=== PATIENT | male | born 1980 | race Caucasian/White ===

== ENCOUNTER 2021-11-22 16:09 | Emergency (ER) | payer BC, SELFPAY ==
[2021-11-22 16:45] VITALS: BP 130/89; PULSE 85; PULSE 97; RESP 16; TEMP 35.7; O2SAT 98; BMI 28.5
--- NOTE | 2021-11-22 17:51 | ED_ITS ---
HPI - General Adult General Time Seen by Provider: 17:51 Date Seen: 11/22/21 Chief complaint: Extremity Pain/Injury, Upper Stated complaint: Bump on left hand Time Seen by Provider: 11/22/21 17:38 Source: patient History of Present Illness HPI narrative: Jordan is a 41-year-old male with no past medical history presents emerged department with a right hand injury. 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 Denies any numbness or tingling. Has not had anything like this before. Patient was worried about his previous surgery and that the plates and screws were ok. Related Data Home Medications Medication Instructions Recorded Confirmed No Known Home Medications 11/25/21 11/25/21 Allergies Allergy/AdvReac Type Severity Reaction Status Date / Time chromium Allergy Unknown Rash Verified 11/25/21 08:35 Review of Systems Status of ROS: Reports: 10 or more systems reviewed and unremarkable except as noted in History and below PFSH PFS Social History Smoking Status: Current every day smoker What tobacco products do you use: cigarettes Do you use any of these nicotine containing products: None Second hand tobacco smoke exposure: No How often do you have a drink containing alcohol: 2-4 times a month How many standard drinks containing alcohol do you have on a typical day: 3 or 4 How often do you have six or more drinks on one occasion: Monthly AUDIT-C Alcohol total score: 5 Non-prescribed substance use: denies use service: No Exam Narrative: Exam Narrative: General: No obvious distress HEENT: Pupils equal round reactive to light, extraocular muscles intact : Neck: Supple full range of motion Lungs: Clear to auscultation bilaterally Heart: Normal sinus rhythm S1-S2 Abdomen: Soft nontender Muscle skeletal: Right hand: distal fourth metacarpal, 1-2 cm cyst present, FROM on extension and flexion of the MCP, minimal tenderness to palpation, no redness. CMS intact Neuro: Alert awake and oriented x3 Const: Vital Signs, click to edit/add: Vital Signs - 24 hr 11/22/21 16:45 Temperature 96.2 F L Pulse Rate [Pulse Oximeter] 85 Pulse Rate [Right Pulse Oximeter] 97 Respiratory Rate 16 Blood Pressure [Ri ght Upper Arm] 130/89 Pulse Oximetry 98 Oxygen Delivery Me thod Room Air Course Course Hospital Course: 5:45 PM: AIDET performed. vitals are normal. Work up will include XR right hand 3 views, patient does not want anything for pain. Likley Ganglionic cyst due to overuse. Vital Signs Vital signs: Initial Vital Signs Temperature 96.2 F L 11/22/21 16:45 Temperature Source Temporal Artery Scan 11/22/21 16:45 Pulse Rate 97 11/22/21 16:45 Pulse Rhythm 11/22/21 16:45 Respiratory Rate 16 11/22/21 16:45 Blood Pressure 130/89 11/22/21 16:45 Blood Pressure Mean 102 11/22/21 16:45 Pulse Oximetry 98 11/22/21 16:45 Oxygen Delivery Method 11/22/21 16:45 Vital Signs Temperature 96.2 F L 11/22/21 16:45 Pulse Rate 97 11/22/21 16:45 Respiratory Rate 16 11/22/21 16:45 Blood Pressure 130/89 11/22/21 16:45 Pulse Oximetry 98 11/22/21 16:45 Oxygen Delivery Method 11/22/21 16:45 Temperature 96.2 F L 11/22/21 16:45 Pulse Rate 97 11/22/21 16:45 Respiratory Rate 16 11/22/21 16:45 Blood Pressure 130/89 11/22/21 16:45 Pulse Oximetry 98 11/22/21 16:45 Oxygen Delivery Method 11/22/21 16:45 Discharge Plan Discharge Clinical Impression: Ganglion cyst of tendon sheath of right hand Patient Disposition: Home, Self-Care Condition: Improved Instructions: Ganglion Cysts (ED) Additional Instructions: Any worsening pain or increased redness to be seen again, otherwise follow-up with primary care provider in 7-10 days. Activity Level: Activity as Tolerated Prescriptions: No Action No Known Home Medications Follow Up/Referrals: Temo Jorgensen MD [Primary Care Provider] - Stand Alone Forms: [employer] Info Instructions
--- NOTE | 2021-11-22 17:56 | CRLHL7_ITS ---
For Patients: As a result of the Cures Act, medical imaging exams and procedure reports are released immediately into your electronic medical record. You may view this report before your referring provider. If you have questions, please contact your health care provider. INDICATION: Swelling of the 4th metacarpal persistent after surgery. COMPARISON: 04 October 2020 and 19 June 2021. IMPRESSION: Dorsal microplate and screw fixation of the 4th metacarpal with healed diaphysis fracture. Anatomic alignment. Small nonunited round well corticated fracture ossicle of the tip of the ulnar styloid. No radiopaque foreign body. No soft tissue gas. No significant soft tissue swelling appreciated. Dictated by Raman Perry MD @ 11/22/2021 6:45:35 PM (Electronically Signed)
== END 2021-11-22 19:02 | disposition home or self-care (01) ==
PROVIDERS: Emergency Provider Student in an Organized Health Care Education/Training Program; PCP Family Medicine
DX: M67.442 Ganglion, left hand (principal)
CPT/HCPCS: 73130; 99283; 99284

== ENCOUNTER 2021-11-25 08:31 | Emergency (ER) | payer BC, SELFPAY ==
[2021-11-25 08:35] VITALS: BP 148/98; PULSE 85; RESP 18; TEMP 36.9; O2SAT 99; BMI 27.9
--- NOTE | 2021-11-25 09:06 | CRLHL7_ITS ---
For Patients: As a result of the Cures Act, medical imaging exams and procedure reports are released immediately into your electronic medical record. You may view this report before your referring provider. If you have questions, please contact your health care provider. INDICATION: Trauma with pain TECHNIQUE: Two-view right hand COMPARISON: 11/22/2021 FINDINGS: Two views of the right hand re-identified dorsally positioned sideplate and screw fixation device transfixing a right 4th metacarpal proximal/mid shaft fracture. Alignment remains normal with no acute abnormality noted. A small well corticated ulnar styloid avulsion fracture is re-identified. IMPRESSION: 1. No acute fracture or acute abnormality noted. 2. Dorsally positioned sideplate and screw fixation device transfixes a proximal diaphyseal fracture of the right 4th metacarpal bone. Dictated by Saad House MD @ 11/25/2021 9:30:03 AM (Electronically Signed)
--- NOTE | 2021-11-25 09:45 | ED.GENADULT ---
HPI - General Adult General Chief complaint: Extremity Pain/Injury, Upper Stated complaint: Smashed RT hand Time Seen by Provider: 11/25/21 09:03 Source: patient Mode of arrival: ambulatory Limitations: no limitations History of Present Illness HPI narrative: 41-year-old male coming in today complaining of hand pain. He states that approximately 10 hours ago he transmission fell on his right hand. He has pain over the 4th metacarpal. He has some broken skin in the area. 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 Related Data Home Medications Medication Instructions Recorded Confirmed No Known Home Medications 11/25/21 11/25/21 Allergies Allergy/AdvReac Type Severity Reaction Status Date / Time chromium Allergy Unknown Rash Verified 11/25/21 08:35 Review of Systems Narrative: Denies other injury PFSH [facility] Social History Smoking Status: Current every day smoker What tobacco products do you use: cigarettes Do you use any of these nicotine containing products: None Second hand tobacco smoke exposure: No How often do you have a drink containing alcohol: 2-4 times a month How many standard drinks containing alcohol do you have on a typical day: 3 or 4 How often do you have six or more drinks on one occasion: Monthly AUDIT-C Alcohol total score: 5 Non-prescribed substance use: denies use service: No Exam Narrative: Exam Narrative: Well-nourished well-developed patient in no acute distress. Alert and oriented. Answers questions appropriately. Mood and affect are appropriate. HEENT: Normocephalic atraumatic. Pupils are equally round reactive to light. Extraocular muscles are intact. Conjunctivae are moist without any icterus noted. Extremities: right hand has some swelling over the dorsal surface. 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 He has tenderness over the 4th metacarpal. No tenderness of the fingers. He has full range of motion of the fingers without significant difficulty. He has approximately a 1 cm jagged laceration right between the 3rd and 4th knuckles. The laceration extends through the skin but does not penetrate into the subcutaneous tissue the skin edges are sitting approximated. He has another small puncture wound just medial to the 4th knuckle. The area is not red. There is no active bleeding. Full range of motion at the wrist. Normal radial pulse. Normal capillary refill of all fingers. Skin: Well perfused. Const: Vital Signs, click to edit/add: Vital Signs - 24 hr 11/25/21 08:35 Temperature 98.4 F Pulse Rate [Pulse Oximeter] 85 Respiratory Rate 18 Blood Pressure [Le ft Upper Arm] 148/98 H Pulse Oximetry 99 Oxygen Delivery Me thod Room Air Course Course Hospital Course: Hand x-ray does not show any acute abnormalities. His hand was cleaned and dressed appropriately we opted not to suture given the shallow nature of the laceration and the fact that it has been open now for 10 hours. Vital Signs Vital signs: Initial Vital Signs Temperature 98.4 F 11/25/21 08:35 Temperature Source Temporal Artery Scan 11/25/21 08:35 Pulse Rate 85 11/25/21 08:35 Pulse Rhythm 11/25/21 08:35 Respiratory Rate 18 11/25/21 08:35 Blood Pressure 148/98 H 11/25/21 08:35 Blood Pressure Mean 114 11/25/21 08:35 Blood Pressure Position Supine 11/25/21 08:35 Pulse Oximetry 99 11/25/21 08:35 Oxygen Delivery Method 11/25/21 08:35 Vital Signs Temperature 98.4 F 11/25/21 08:35 Pulse Rate 85 11/25/21 08:35 Respiratory Rate 18 11/25/21 08:35 Blood Pressure 148/98 H 11/25/21 08:35 Pulse Oximetry 99 11/25/21 08:35 Oxygen Delivery Method 11/25/21 08:35 Temperature 98.4 F 11/25/21 08:35 Pulse Rate 85 11/25/21 08:35 Respiratory Rate 18 11/25/21 08:35 Blood Pressure 148/98 H 11/25/21 08:35 Pulse Oximetry 99 11/25/21 08:35 Oxygen Delivery Method 11/25/21 08:35 Medical Decision Making MDM Narrative Medical decision making narrative: 41-year-old male with injury to the hand, small laceration and contusion. Tdap updated 2017. We discussed wound hygiene, signs and symptoms of infection, reasons to return to the ER. We discussed icing and elevating the hand for symptom control. We discussed onvu-pin-yohtfab pain medications. Patient was agreeable with everything we discussed had no other questions or concerns. Imaging Data Hand x-ray: Attestation: I have reviewed the pertinent imaging results. My impression: no acute fractures Radiologist's impression: TECHNIQUE: Two-view right hand COMPARISON: 11/22/2021 FINDINGS: Two views of the right hand re-identified dorsally positioned sideplate and screw fixation device transfixing a right 4th metacarpal proximal/mid shaft fracture. Alignment remains normal with no acute abnormality noted. A small well corticated ulnar styloid avulsion fracture is re-identified. IMPRESSION: 1. No acute fracture or acute abnormality noted. 2. Dorsally positioned sideplate and screw fixation device transfixes a proximal diaphyseal fracture of the right 4th metacarpal bone. Discharge Plan Discharge Clinical Impression: Contusion of hand, Laceration Patient Disposition: Home, Self-Care Condition: Stable Additional Instructions: keep hand clean and dry. Shower like he nor normally would however do not soak your hand the such as swimming, doing dishes or going in hot tubs. Keep cut covered, especially if you are working. Watch out for signs of infection which include redness that spreads around the hand, or draining pus from the laceration. If this occurs follow-up with your primary care provider right away. Elevate the hand as much as you can do today, above heart level. Okay to ice hand as needed as well. Do not ice for more than 20 minutes at a time and do not apply ice directly to skin. Prescriptions: No Action No Known Home Medications Follow Up/Referrals: Temo Jorgensen MD [Primary Care Provider] - Stand Alone Forms: [employer] Info Instructions
--- NOTE | 2021-11-25 10:10 | ED.NURSE ---
wounds dressed with bacitracin and a bandaid. wrapped with coban and then 2 inch joaquín.
== END 2021-11-25 10:18 | disposition home or self-care (01) ==
PROVIDERS: Emergency Provider Family Medicine; PCP Family Medicine
DX: S60.221A Contusion of right hand, initial encounter (principal); W23.0XXA Caught, crushed, jammed, or pinched between moving objects, initial encounter
CPT/HCPCS: 73130; 99283; 99284

== ENCOUNTER 2024-05-02 10:15 | Emergency (ER) | payer BC, SELFPAY ==
--- OUTSIDE RECORDS SUMMARY | 2024-05-02 10:16 | XMS_ITS | Clinical Summary ---
Author Organization [employer] [facility] Address [address] [place] [id number] Care Team Providers Care Automatic Mounter Name Role Phone Evy Blanchard DO Primary Care Provider [phone] Allergies Active Allergy Reactions Criticality Noted Date Comments Chromium And Derivatives Rash Medications omeprazole 20 mg tabletIndication s:Gastroesophage al reflux disease, unspecified whether esophagitis present Take 1 Tablet (20 mg) by mouth once daily. 90 Tablet 3 5 Active albuterol HFA (Ventolin HFA) 90 mcg/actuation inhalerIndicatio ns:Asthma, unspecified asthma severity, unspecified whether complicated, unspecified whether persistent Inhale 1 Puff by mouth every 4 hours if needed for Shortness Of Breath or Wheezing. 18 g 1 5 Active Active Problems Problem Noted Date Diagnosed Date HTN (hypertension) 03/22/2024 Tobacco use disorder 11/15/2009 Overview (03/22/2024): 1 PPD since young age GERD (gastroesophageal reflux disease) 0 Encounters Date Type Department Care Team Description 03/22/2024 4:30 PM MANAGER OF INFORMATION Office Visit [facility] [address] [place] [address] Evy Blanchard, DO Medication Management (omeprazole) 03/22/2024 Travel 03/05/[address] [facility] [address] [place] [address] Evy Blanchard DO Refill Request (Omeprazole) from Last 3 Months Immunizations Name Administration Dates Next Due DTP 07/27/1987,10/03/1986,05/17/1986 ,01/08/1985 Influenza Virus, Unspecified 12/16/2013 Influenza, IIV4 12/16/2013 MMR 07/03/1995,05/17/1986 Oral Polio Vaccine 07/27/1987,10/03/1986, 987 Td (Age >=7 Years) 07/01/1995 Tdap 10/02/2016,09/27/2009,08/15/2009 Family History Medical History Relation Name Comments Cancer-colon Neg. 1 Heart Disease Neg. 2 Diabetes Neg. 3 Cancer-prostate Other unknown Relation Name Status Comments Brother 1 Alive Brother 2 Alive Mother Alive Neg. 1 Neg. 2 Neg. 3 Other Social History Tobacco Use Types Packs/Day Years Used Date Smoking Tobacco: Every Day Cigarettes 1 15 Smokeless Tobacco: Never Tobacco Cessation:Ready to Q uit: Yes; Counseling Given: No Alcohol Use Standard Drinks/Week Comments Yes 24 (1 standard drink = 0.6 oz pu re alcohol) PHQ-2 Answer Date Recorded PHQ-2 TOTAL SCORE 1 11/20/2022 Social Connections Answer Date Recorded Do you often feel lonely or isolated from those around you? 0 03/22/2024 Financial Resource Strain Answer Date R ecorded Difficulty of Paying Living Expenses 3 03/22/2024 Difficulty of Paying Living Expenses Not on file 03/22/2024 Food Insecurity Answer Date Recorded Do you worry your food will run out before you are able to buy more? 1 03/22/2024 Transportation Needs Answer Date Record ed Does lack of transportation keep you from medica l appointments? 1 03/22/2024 Does lack of transportation keep you from work, meetings or getting things that you need? 1 03/22/2024 Housing Stability Answer Date Recorded What is your housing situation today? 1 03/22/2024 Utilities Answer Date Recorded Do you have trouble paying f or utilities (for example, heat, electricity, water, phone)? 1 03/22/2024 Sex and Gender Information Value Date Recorded Sex Assigned at Not on file Legal Sex Male 5:25 AM MANAGER OF INFORMATION Gender Identity Not on file Sexual Orientation Not on file Obstetrics History Last Filed Vital Signs Vital Sign Reading Time Taken Comments Blood Pressure 158/114 03/22/2024 4:50 PM MANAGER OF INFORMATION Pulse 83 03/22/2024 4:50 PM MANAGER OF INFORMATION Temperature 37.2 C (98.9 F) 11/27/2021 12:51 PM CDT Respiratory Rate 14 12/12/2018 10:53 PM CDT Oxygen Saturation 98% 03/22/2024 4:23 PM MANAGER OF INFORMATION Inhaled Oxygen Concentration - - Weight 104.8 kg (231 lb) 03/22/2024 4:23 PM MANAGER OF INFORMATION Height 183.6 cm (6' 0.28) 11/20/2022 10:45 AM C DT Body Mass Index 31.08 11/20/2022 10:45 AM CDT Plan of Treatment Upcoming Encounters Date Type Department Care Team (Late st Contact Info) Description 05/17/2024 4:30 PM CDT Office Visit [facility] [address] [place] [address] Evy Blanchard DO [address] [place] [address] Health Maintenance Due Date Last Done Comments Pneumococcal series for age 6-49 (1 of 2 - PCV) 2000 COVID-19 vaccine series ( season) 2023 Influenza for age 9-49 11/09/2023 12/16/2013, 2013 BMI (ht and wt on same day) for age 18+ 11/21/2023 11/20/2022, 09/25/2020, 08/25/2020 Depression screening for age 12+ 11/21/2023 11/21/19 23, 08/25/2020 Tetanus booster 10/02/2026 10/02/2016, 09/08, 08/15/2009, Additional history exists Lipids for age 35-44 11/21/2027 11/20/2022 Tdap Completed 10/02/2016, 09/08, 08/15/2009 HIV for age 15-65 Completed 11/20/2022 Hepatitis C screening for ag e 18-79 Completed 11/20/2022 Procedures Procedure Name Priority Date/Time Associated Diagnosis Comments ANTI HIV 1/2 Routine 11/20/2022 11:43 AM CDT Screening for HIV (human immunodeficiency virus) ANTI HCV Routine 11/20/2022 11:43 AM CDT Encounter for hepatitis C screening test for low risk patient LIPID PANEL W REFLEX MEASURED LDL Routine 11/20/2022 11:43 AM CDT Screening for hyperlipidemia from Last 3 Months or Most Recently Relevant to Health Maintenance Results * LIPID PANEL W REFLEX MEASURED LDL (11/20/2022 11:43 AM CDT) CHOLESTEROL,TOTAL 185 100 - 199 mg/dL 11/21/2022 8:24 AM CDT [facility] Comment: Cholesterol, Total Reference Ranges Desirable <200 mg/dL Borderline 200-239 mg/dL High >=240 mg/dL TRIGLYCERIDES 138 <150 mg/dL 11/21/2022 8:24 AM CDT [facility] HDL CHOLESTEROL 44 >40 mg/dL 8:24 AM CDT [facility] NON-HDL CHOLESTEROL 141 <145 mg/dl 11/21/2022 8:24 AM CDT [facility] CHOL/HDL RATIO 4.20 <4.50 11/21/2022 8:24 AM CDT [facility] LDL CHOLESTEROL 113 <=130 mg/dL 11/21/2022 8:24 AM CDT [facility] VLDL CHOLESTEROL 28 <=30 mg/dL 11/21/2022 8:24 AM CDT [facility] PROVIDER ORDERED STATUS RANDOM 11/21/2022 8:24 AM CDT [facility] Blood BLOOD SPECIMEN / Unknown Venipuncture / Unknown 11/20/2022 11:43 AM CDT 11/20/2022 11:43 AM CDT us Evy Blanchard DO CHEMISTRY Final Resu lt [facility] [address] [place] [address], * ANTI HCV (11/20/2022 11:43 AM CDT) HEPATITIS C ANTIBODY Non-Reacti ve Non-React daphne 11/21/2022 9:48 AM CDT [facility] Comment:Please note, per www .CDC.gov: If a patient is known to be at high risk of HCV infection, or is symptomatic, and the physician's suspicion of HCV infection is high, HCV RNA testing is often employed and is of diagnostic value, even after an initial negative anti-HCV test result. Blood BLOOD SPECIMEN / Unknown Venipuncture / Unknown 11/20/2022 11:43 AM CDT 11/20/2022 11:43 AM CDT Evy Blanchard DO SEND OUTS Final Resu lt [facility] [employer] [id number] [place] [id number] * ANTI HIV 1/2 (11/20/2022 11:43 AM CDT) HIV-1/HIV-2 SCREEN Non-Reacti ve Non-Reacti ve 11/21/2022 8:11 AM CDT [facility] [employer] [facility] Comment:HIV-1 p24 and HIV-1/ HIV-2 Ab Not Detected. Blood BLOOD SPECIMEN / Unknown Venipuncture / Unknown 11/20/2022 11:43 AM CDT 11/20/2022 11:43 AM CDT Evy Blanchard DO SEND OUTS Final Resu lt [facility] [address] [place] [address], from Last 3 Months or Most Recently Relevant to Health Maintenance Insurance [facility] [employer] [place] [employer] [place] Care Teams Automatic Mounter Relationship Specialty Start Date End Date Evy Blanchard [place] [address] PCP - General Family Practice 03/18/24
[2024-05-02 10:24] VITALS: BP 162/102; PULSE 105; RESP 18; TEMP 36.3; O2SAT 96; BMI 31.2
--- NOTE | 2024-05-02 10:36 | CRLHL7_ITS ---
For Patients: As a result of the Century Cures Act, medical imaging exams and procedure reports are released immediately into your electronic medical record. You may view this report before your referring provider. If you have questions, please contact your health care provider. INDICATION: Umbilical hernia periumbilical and left lower quadrant pain TECHNIQUE: CT abdomen and pelvis with 113 mL Isovue 370 contrast. COMPARISON: None. FINDINGS: Lower chest: Unremarkable. Liver: Normal in size and attenuation. No suspicious masses. Gallbladder and bile ducts: No stones or inflammation. No biliary dilatation. Pancreas: Unremarkable. No mass or inflammation. Spleen: Normal in size. No masses. Adrenal glands: Normal in size. No nodules. Kidneys: Normal in size. No suspicious masses, stones, or hydronephrosis. GI tract: Mild wall thickening of the sigmoid colon however this could be related to nondistention minimal colitis not completely excluded. Normal appendix. Vasculature: Abdominal aorta is normal in caliber. Lymph nodes: No lymphadenopathy. Peritoneum/Abdominal Wall: Small fat containing umbilical hernia there is mild fat stranding the hernia sac as well as the underlying mesenteric fat. Small fat containing right inguinal hernia. Pelvis: Unremarkable. No pelvic masses. Bones: Unremarkable for age. IMPRESSION: 1. Normal appendix. 2. Mild wall thickening sigmoid colon probably related to nondistention minimal colitis not completely excluded. 3. Small fat containing umbilical hernia fat stranding in the hernia sac as well as the underlying mesenteric fat. Please note that all CT scans at this facility use dose modulation, iterative reconstruction, and/or weight-based dosing when appropriate to reduce radiation dose to as low as reasonably achievable. Dictated by Cat Rivera MD @ 05/02/2024 11:06:56 AM (Electronically Signed)
[2024-05-02 10:50] LABS: Basophils Absolute Auto 0.07 K/uL (0.00-0.30); Basophils Percent Auto 0.7 % (0.0-3.0); Eosinophils Absolute Auto 0.25 K/uL (0.00-0.50); Eosinophils Percent Auto 2.4 % (0.0-7.0); Hematocrit 45.3 % (37.0-53.0); Hemoglobin* 15.8 gm/dL (13.5-17.5); Immature Granulocytes Abs Auto 0.02 K/uL (0.00-0.30); Immature Granulocytes Pct Auto 0.2 %; Lymphocytes Absolute Auto 3.02 K/uL (0.90-2.90); Lymphocytes Percent Auto 29.5 % (20-44); Mean Corpuscular HGB Conc 35 gm/dL (32-36); Mean Corpuscular Hemoglobin 31 pg (26-34); Mean Corpuscular Volume 90 fL (80-100); Monocytes Percent Auto 9.7 % (0.0-11.0); Neutrophils Absolute Auto 5.89 K/uL (1.7-7.0); Neutrophils Percent Auto 57.5 % (42.0-72.0); Platelet Count* 197 K/uL (140-440); RDW Coefficient of Variation % 13.1 % (11.5-15.5); Red Blood Count 5.04 m/uL (4.30-5.90); White Blood Count* 10.24 K/uL (4.50-11.00)
[2024-05-02 10:55] LABS: Slide Review Reflex No
[2024-05-02 11:03] LABS: Albumin* 4.6 g/dL (3.3-5.0); Chloride* 105 mmol/L (96-114); Sodium* 137 mmol/L (135-149)
[2024-05-02 11:04] LABS: Potassium* 4.5 mmol/L (3.6-5.1)
[2024-05-02 11:06] LABS: Alkaline Phosphatase* 62 U/L (40-150); Anion Gap 9 mEq/L (7-15); Aspartate Amino Transferase* 26 U/L (12-35); Bilirubin Total* 0.7 mg/dL (0.1-1.5); Blood Urea Nitrogen* 16 mg/dL (5-24); Carbon Dioxide* 23 mmol/L (20-32); Est. Creatinine Clearance* 105.62; Estimated Glomerular Filt Rate 96 ml/min; Glucose* 136 mg/dL (60-115); Total Protein* 7.3 g/dL (6.0-8.3)
--- OUTSIDE RECORDS SUMMARY | 2024-05-02 11:06 | XMS_ITS | Clinical Summary ---
Author Organization [employer] [facility] Address [address] [place] [id number] Care Team Providers Care Reconcilement Clerk Name Role Phone Evy Blanchard DO Primary Care Provider [phone] Allergies Active Allergy Reactions Criticality Noted Date [...] Department Care Team Description 03/22/2024 4:30 PM [employer] Office Visit [facility] [address] [place] [address] Evy Blanchard, DO Medication Management (omeprazole) 03/22/2024 Travel 03/05/2024 Refill [facility] [address] [place] [address] Evy Blanchard DO Refill Request (Omeprazole) from [...] on file Legal Sex Male 5:25 AM [employer]ST[employer] Gender Identity Not on file Sexual Orientation Not on file Obstetrics History Last Filed Vital Signs Vital Sign Reading Time Taken Comments Blood Pressure 158/114 03/22/2024 4:50 PM [employer] Pulse 83 03/22/2024 4:50 PM [employer] INST[employer]ER Temperature 37.2 C (98.9 F) 11/27/2021 12:51 PM CDT Respiratory Rate 14 12/12/2018 10:53 PM CDT Oxygen Saturation 98% 03/22/2024 4:23 PM [employer] Inhaled Oxygen Concentration - - Weight 104.8 kg (231 lb) 03/22/2024 4:23 PM [employer]ST[employer] Height 183.6 cm (6' 0.28) 11/20/2022 10:45 AM C DT Body Mass Index 31.08 11/20/2022 10:45 AM CDT Plan of Treatment Upcoming Encounters Date Type Department Care Team (Late st Contact Info) Description 05/17/2024 4:30 PM CDT Office Visit [facility] [address] [place] [address] Evy Blanchard DO [address] [place] [address] Health Maintenance Due Date Last Done Comments [...] - 199 mg/dL 11/21/2022 8:24 AM CDT [facility] Comment: Cholesterol, Total Reference Ranges Desirable <200 mg/dL Borderline 200-239 mg/dL High >=240 mg/dL TRIGLYCERIDES 138 <150 mg/dL 11/21/2022 8:24 AM CDT [facility] HDL CHOLESTEROL 44 >40 mg/dL 8:24 AM CDT [facility] NON-HDL CHOLESTEROL 141 <145 mg/dl 11/21/2022 8:24 AM CDT [facility] CHOL/HDL RATIO 4.20 <4.50 11/21/2022 8:24 AM CDT [facility] LDL CHOLESTEROL 113 <=130 mg/dL 11/21/2022 8:24 AM CDT [facility] VLDL CHOLESTEROL 28 <=30 mg/dL 11/21/2022 8:24 AM CDT [facility] PROVIDER ORDERED STATUS RANDOM 11/21/2022 8:24 AM CDT [facility] Blood BLOOD SPECIMEN / Unknown Venipuncture / Unknown 11/20/2022 11:43 AM CDT 11/20/2022 11:43 AM CDT us Evy Blanchard DO CHEMISTRY Final Resu lt [facility] [address] [place] [address], * ANTI HCV (11/20/2022 11:43 AM CDT) HEPATITIS C ANTIBODY Non-Reacti ve Non-React daphne 11/21/2022 9:48 AM CDT [facility] Comment:Please note, per www .CDC.gov: If [...] Blanchard DO SEND OUTS Final Resu lt [facility] SENDOUT [facility] [id number] [place] [id number] * ANTI HIV 1/2 (11/20/2022 11:43 AM CDT) HIV-1/HIV-2 SCREEN Non-Reacti ve Non-Reacti ve 11/21/2022 8:11 AM CDT [facility] Comment:HIV-1 p24 and HIV-1/ HIV-2 Ab Not Detected. Blood BLOOD SPECIMEN / Unknown Venipuncture / Unknown 11/20/2022 11:43 AM CDT 11/20/2022 11:43 AM CDT Evy Blanchard DO SEND OUTS Final Resu lt [facility] [address] [place] [address], from Last 3 Months or Most Recently Relevant to Health Maintenance Insurance [facility] [employer] [place] [place] [employer] [place] [place] Care Teams Reconcilement Clerk Relationship Specialty Start Date End Date Evy Bl[place] [address] PCP - General Family Practice 03/18/24
[2024-05-02 11:07] LABS: Alanine Aminotransferase* 30 U/L (4-50); Calcium* 9.1 mg/dL (8.4-10.6)
--- NOTE | 2024-05-02 11:20 | ED.ABDPAIN ---
HPI - Abdominal Pain General Date Seen: 05/02/24 Chief Complaint: Abdominal Pain Stated Complaint: Stomach pain Time Seen by Provider: 05/02/24 10:31 Source: patient Mode of arrival: ambulatory Limitations: no limitations History of Present Illness HPI narrative: Patient is a 43-year-old male presenting to the emergency department for abdominal pain. The abdominal pain started yesterday. States it seems to start around some umbilical region and radiates to his left lower quadrant. 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 He states it does not appear any different than normal for him. Does state muscles pain at this time seems to be in his left lower quadrant. Denies having pain like this before. Pain started after he coughed yesterday. Has been wearing a abdominal brace around his abdomen that has helped quite a bit. Denies any nausea or vomiting. No other injuries noted. Chest pain, shortness of breath, diarrhea, constipation, weakness, numbness, headache. States he has been eating and drinking normally. Related Data Home Medications ?Medication ?Instructions ?Recorded ?Confirmed albuterol sulfate 90 mcg/actuation 1 puff inhalation Q4H PRN wheezing 05/02/24 05/02/24 aerosol inhaler (Ventolin HFA) omeprazole 20 mg capsule,delayed 20 mg PO DAILY 05/02/24 05/02/24 release Allergies Allergy/AdvReac Type Severity Reaction Status Date / Time chromium Allergy Unknown Rash Verified 05/02/24 10:47 Review of Systems Status of ROS Reports: 10 or more systems reviewed and unremarkable except as noted in History and below PFS PFS Social History Smoking Status: Current every day smoker What tobacco products do you use: cigarettes Do you use any of these nicotine containing products: None Second hand tobacco smoke exposure: No How often do you have a drink containing alcohol: 2-4 times a month How many standard drinks containing alcohol do you have on a typical day: 3 or 4 How often do you have six or more drinks on one occasion: Monthly AUDIT-C Alcohol total score: 5 Non-prescribed substance use: denies use service: No Exam Narrative: Exam Narrative: Const: Well-nourished, Well-developed, in mild distress Eyes: PERRL, no conjunctival injection, and symmetrical lids HENT: Atraumatic external nose and ears. Moist mucous membranes. Neck: Symmetric, trachea midline, No thyromegaly. CVS: RRR, No murmurs or gallops. Peripheral pulses 2+ and equal in all extremities RESP: Unlabored respiratory effort. Clear to auscultation bilaterally. GI: Mild left lower quadrant tenderness. Non reducible umbilical hernia that is soft and no overlying skin change MSK:Extremities w/o deformity, Normal Active ROM Skin: Warm, Dry. No rashes or lesions. Neuro: Normal Muscle tone, No focal neurological deficits. Psych: Awake, Alert, & Oriented x3. Appropriate mood and affect. Const: Vital Signs, click to edit/add: Vital Signs - 24 hr 05/02/24 10:24 Temperature 97.4 F L Pulse Rate [Pulse Oximeter] 105 H Respiratory Rate 18 Blood Pressure [Ri ght Upper Arm] 162/102 H Pulse Oximetry 96 Oxygen Delivery Me thod Room Air Course Vital Signs Vital signs: Initial Vital Signs Temperature 97.4 F L 05/02/24 10:24 Temperature Source Temporal Artery Scan 05/02/24 10:24 Pulse Rate 105 H 05/02/24 10:24 Respiratory Rate 18 05/02/24 10:24 Blood Pressure 162/102 H 05/02/24 10:24 Blood Pressure Mean 122 H 05/02/24 10:24 Pulse Oximetry 96 05/02/24 10:24 Oxygen Delivery Method Room Air 05/02/24 10:24 Vital Signs Temperature 97.4 F L 05/02/24 10:24 Pulse Rate 105 H 05/02/24 10:24 Respiratory Rate 18 05/02/24 10:24 Blood Pressure 162/102 H 05/02/24 10:24 Pulse Oximetry 96 05/02/24 10:24 Oxygen Delivery Method Room Air 05/02/24 10:24 Temperature 97.4 F L 05/02/24 10:24 Pulse Rate 105 H 05/02/24 10:24 Respiratory Rate 18 05/02/24 10:24 Blood Pressure 162/102 H 05/02/24 10:24 Pulse Oximetry 96 05/02/24 10:24 Oxygen Delivery Method Room Air 05/02/24 10:24 MDM - Abdominal Pain MDM Narrative Medical decision making narrative: Patient is a 43-year-old male presenting to the emergency department for abdominal pain. Seems like the pain is mostly in his left lower quadrant/supra pubic region. He does have tenderness when you press on his umbilical hernia be states that is chronic and has been that way for several years. He has seen a general surgeon for it last 5 years ago and has not had any changes through the hernia since that time. At that time he states he also had tenderness to palpation of the hernia only when you press on it and he was never able to reduce it at that time either. He states this hernia seems no different than normal for him. Will do a CT scan though for better evaluation. Also do CBC, CMP, urinalysis as he does have some suprapubic pain. CT scan reviewed by myself and the radiologist shows some mild fat stranding around his umbilical hernia and some possible colitis of the sigmoid colon. This fat stranding is likely chronic for him based on his description. Did not believe he needs a general surgery consult at this time as again states his hernias no different than normal for him. Considering this pain started after a cough and sneeze I wound. Is if this caused a slight muscle strain. He states the pain seems much better today compared to yesterday. He states he does not have any sensation of needing to urinate at this time and with no signs of cystitis on CT and otherwise no urinary symptoms I do not believe urinalysis is necessary. Lab Data Labs: Lab Results 05/02/24 Range/Units 10:45 WBC 10.24 (4.50-11.00) K/uL RBC 5.04 (4.30-5.90) m/uL Hgb 15.8 (13.5-17.5) gm/dL Hct 45.3 (37.0-53.0) % MCV 90 (80-100) fL MCH 31 (26-34) pg MCHC 35 (32-36) gm/dL RDW Coeff of Kandace 13.1 (11.5-15.5) % Plt Count 197 (140-440) K/uL Neut % (Auto) 57.5 (42.0-72.0) % Lymph % (Auto) 29.5 (20-44) % Curry % (Auto) 9.7 (0.0-11.0) % Eos % (Auto) 2.4 (0.0-7.0) % Baso % (Auto) 0.7 (0.0-3.0) % Neut # (Auto) 5.89 (1.7-7.0) K/uL Lymph # (Auto) 3.02 H (0.90-2.90) K/uL Curry # (Auto) 1.00 H (0.00-0.90) K/UL Eos # (Auto) 0.25 (0.00-0.50) K/uL Baso # (Auto) 0.07 (0.00-0.30) K/uL Abs Immat Gran (auto) 0.02 (0.00-0.30) K/uL Imm/Tot Granulo (auto) 0.2 % Imaging Data CT scan abdomen and pelvis: Attestation: I have reviewed the pertinent imaging results. Radiologist's impression: 1. Normal appendix. 2. Mild wall thickening sigmoid colon probably related to nondistention minimal colitis not completely excluded. 3. Small fat containing umbilical hernia fat stranding in the hernia sac as well as the underlying mesenteric fat. Please note that all CT scans at this facility use dose modulation, iterative reconstruction, and/or weight-based dosing when appropriate to reduce radiation dose to as low as reasonably achievable. Dictated by Cat Rivera MD @ 05/02/2024 11:06:56 AM Discharge Plan Discharge Clinical Impression: Abdominal pain Qualifiers: Abdominal location: left lower quadrant Qualified Code(s): R10.32 - Left lower quadrant pain Patient Disposition: Home, Self-Care Condition: Stable Instructions: Abdominal Pain (ED) Additional Instructions: I cannot say for certain what is causing your abdominal pain. There is some signs of mild colitis on your CT scan which is usually viral in nature and will improve on its own. Is also possible you had a muscle strain after your sneeze yesterday. Of note though if your hernia becomes tender persistently even when not palpating it, becomes firm, or develops any overlying skin changes you need to have it evaluated immediately. This could be a sign of a emergent abdominal issue that would require surgery. Prescriptions: No Action omeprazole 20 mg capsule,delayed release(DR/EC) 20 mg PO DAILY albuterol sulfate [Ventolin HFA] 90 mcg/actuation HFA aerosol inhaler 1 puff INHALATION Q4H PRN (Reason: wheezing) Follow Up/Referrals: Temo Jorgensen MD [Primary Care Provider] - Stand Alone Forms: [facility] Info Instructions
== END 2024-05-02 12:08 | disposition home or self-care (01) ==
PROVIDERS: Emergency Provider Student in an Organized Health Care Education/Training Program; PCP Family Medicine
DX: R10.32 Left lower quadrant pain (principal)
CPT/HCPCS: 36415; 74177; 80053; 81001; 85025; 99283; 99284; Q9967